=== PATIENT | female | born 1945 | race Caucasian/White ===

== ENCOUNTER → 2020-02-14 | Outpatient (CLI) | payer MEDICARE | END | disposition home or self-care (01) | LOC: CFH 08:05 | PROVIDERS: ATTEND Internal Medicine Cardiovascular Disease | DX: I25.9 Chronic ischemic heart disease, unspecified (principal); I10 Essential (primary) hypertension; R07.9 Chest pain, unspecified | CPT/HCPCS: 78452; 93017; A9502 ==

== ENCOUNTER → 2020-02-15 | Outpatient (CLI) | payer MEDICARE | END | disposition home or self-care (01) | LOC: CVU 06:48 | PROVIDERS: ATTEND Internal Medicine Cardiovascular Disease | DX: I11.9 Hypertensive heart disease without heart failure (principal); E78.5 Hyperlipidemia, unspecified | CPT/HCPCS: 93306 ==

== ENCOUNTER 2020-03-06 10:05 | Day surgery (SDC) | payer MEDICARE ==
[~2020-03-06] VITALS: Ht 149.9 cm; Wt 68.0 kg
[2020-03-06] MEDS ORDERED: ENAL20TA9 PO (11:05)
[2020-03-06] MEDS ORDERED: NITROGLYCERINE TD (11:05)
[2020-03-06] MEDS ORDERED: ARIP2TAB2 PO (11:05)
[2020-03-06] MEDS ORDERED: TRAZ-175 PO (11:05)
[2020-03-06] MEDS ORDERED: BUPR200T31 PO (11:05)
[2020-03-06] MEDS ORDERED: ALPR0.5T7 PO (11:05)
[2020-03-06] MEDS ORDERED: ATOR10TA9 PO (11:05)
[2020-03-06] MEDS ORDERED: VILA40TA PO (11:05)
[2020-03-06] MEDS ORDERED: CELE200C PO (11:05)
[2020-03-06] MEDS ORDERED: ALPR2TAB5 PO (11:05)
[2020-03-06] MEDS ORDERED: OMEP40CA42 PO (11:05)
[2020-03-06] MEDS ORDERED: MULT-257 PO (11:09)
[2020-03-06] MEDS ORDERED: B CO1TAB14 PO (11:09)
[2020-03-06] MEDS ORDERED: CHOL10003 PO (11:09)
[2020-03-06] MEDS ORDERED: UBID100C24 PO (11:09)
[2020-03-06] MEDS ORDERED: MAGNESIUM PO (11:09)
[2020-03-06] MEDS ORDERED: ASPI-650 PO (11:09)
[2020-03-06] MEDS ORDERED: ASCO100018 PO (11:09)
[2020-03-06] MEDS ORDERED: VITA100022 PO (11:09)
[2020-03-06] MEDS ORDERED: CALCIUM PO (11:09)
[2020-03-06 11:10] VITALS: BP 154/82
[2020-03-06 11:23] LABS: BASOPHILS % (AUTO) 1 % (0-1); EOSINOPHILS % (AUTO) 2 % (1-7); LYMPHOCYTES % (AUTO) 25 % (22-44); MEAN CORPUSCULAR HEMOGLOBIN 32.7 pg (27.0-34.8); MEAN CORPUSCULAR HGB CONC 34.4 g/dL (32.4-35.8); MEAN PLATELET VOLUME 6.9 fL (7.4-10.4); MONOCYTES % (AUTO) 9 % (2-9); NEUTROPHILS % (AUTO) 62 % (42-75); PLATELET COUNT 264 x10^3/uL (130-400); RED BLOOD COUNT 3.91 x10^6/uL (3.82-5.3); RED CELL DISTRIBUTION WIDTH 14.2 % (9.6-15.2)
[2020-03-06 11:25] LABS: MD NO
[2020-03-06 11:33] LABS: ANION GAP 5 mmol/L (5-15); CALCIUM 9.1 mg/dL (8.5-10.1); CHLORIDE 104 mmol/L (98-107); CREATININE 0.58 mg/dL (0.55-1.02)
[2020-03-06] MEDS ORDERED: FENTANYL PF 100 MCG/2ML ONE (11:58)
[2020-03-06] MEDS ORDERED: MIDAZOLAM 1 MG/ML, 5ML ONE (11:58)
[2020-03-06] MEDS ORDERED: LIDOCAINE 1%, 20ML ONE (11:58)
== END 2020-03-06 15:58 | disposition home or self-care (01) ==
LOC: CACL 10:05
PROVIDERS: ATTEND Internal Medicine Cardiovascular Disease
DX: I20.8 Other forms of angina pectoris (principal); Q21.1 Atrial septal defect; I10 Essential (primary) hypertension; E78.5 Hyperlipidemia, unspecified; K21.9 Gastro-esophageal reflux disease without esophagitis; E66.3 Overweight; Z68.27 Body mass index [BMI] 27.0-27.9, adult; Z79.82 Long term (current) use of aspirin; Z79.899 Other long term (current) drug therapy; Z98.890 Other specified postprocedural states; Z82.49 Family history of ischemic heart disease and other diseases of the circulatory system
CPT/HCPCS: 36415; 80048; 85025; 93458; 99156; C1760; C1769; C1894; J2250; J3010; Q9967